=== PATIENT | male | born 1995 | race Two or more races ===

== ENCOUNTER 2020-10-14 18:43 | Emergency (ER) | payer SELFPAY ==
[~2020-10-14] VITALS: Ht 170.2 cm; Wt 129.3 kg
--- NOTE | 2020-10-14 19:05 | NUR ---
Pt came in with c/o low back pain for 3 weeks, ambulatory, no c/p CP/pressure. No SOB or labored breathing, afebrile.
--- NOTE | 2020-10-14 19:08 | NUR ---
Dr. Coon at bedside, MSE in progress.
[2020-10-14] MEDS ORDERED: KETOROLAC TROMETHAMINE 60 MG INJ IM ONE ×2 (19:26→19:30)
--- NOTE | 2020-10-14 19:46 | NUR ---
Xray at bedside.
[2020-10-14] MEDS ORDERED: HYDR-3980 PO (20:13)
--- NOTE | 2020-10-14 20:40 | NUR ---
Patient discharged to home in stable condition. A/O x4, low back pain resolved. Written and verbal after care instructions given. Patient verbalizes understanding of instructions. Stressed follow up or return to ER for worsening s/s. Steady gait.
[2020-10-14 20:55] VITALS: BP 136/82
== END 2020-10-14 20:40 | disposition home or self-care (01) ==
LOC: ER 18:43
DX: M54.5 Low back pain (principal)
CPT/HCPCS: 72100; 96372; 99283; J1885; A4663